=== PATIENT | male | born 2000 | race African-American/Black ===

== ENCOUNTER 2020-02-09 22:13 | Emergency (ER) | payer OTHER, SELFPAY ==
[2020-02-09] MEDS ORDERED: ONDANSETRON 4 MG/2 ML VIAL ONE (23:20)
[2020-02-09] MEDS ORDERED: KETOROLAC 30 MG/ML INJ ONE (23:20)
[2020-02-09] MEDS ORDERED: NA CHLORIDE 0.9% 1,000 ML ONE (23:20)
[2020-02-09 23:32] LABS: Absolute Lymphocytes (CBC) 1.1 K/uL (0.7-4.9); Hematocrit 39.7 % (39.6-49.0); Lymphocytes % 28.7 % (15.3-44.8); MPV 10.2 fL (7.6-11.3); RBC Red Blood Cell Count 4.43 M/uL (4.33-5.43)
[2020-02-09 23:43] LABS: ALT/SGPT 43 U/L (12-78); AST/SGOT 36 U/L (15-37); Albumin 4.5 g/dL (3.4-5.0); Alkaline Phosphatase 46 U/L (45-117); BUN Blood Urea Nitrogen 11 mg/dL (7-18); Bicarbonate 32 mmol/L (21-32); Bilirubin Total 0.9 mg/dL (0.2-1.0); Glucose Level 82 mg/dL (74-106); Potassium 3.8 mmol/L (3.5-5.1); Protein, Total 8.4 g/dL (6.4-8.2); Sodium Level 141 mmol/L (136-145)
--- NOTE | 2020-02-09 23:58 | EDPHYS ---
Physician Documentation [facility] Name: Dajuan Cabrera Age: 19 yrs Sex: Male : 2000 Arrival Date: 02/09/2020 Time: 22:16 Bed 24 Private MD: ED Physician Sin Dias HPI: 02/08 22:52 This 19 yrs old Black Male presents to ER via Ambulatory with complaints of Neck azalea Problem, Back Pain. 22:52 The patient or guardian complains of pain. The symptoms are located on the posterior azalea cervical area, left trapezius and right trapezius. Onset: The symptoms/episode began/occurred 2 day(s) ago. Historical: - Allergies: 22:28 No Known Allergies; sg - Home Meds: 22:28 None [Active]; sg - PMHx: 22:28 Hypertension; sg - PSHx: 22:28 None; sg - Immunization history:: Adult Immunizations up to date. - Social history:: Smoking status: Patient denies any tobacco usage or history of. ROS: 22:52 Constitutional: Negative for fever, chills, and weight loss, Eyes: Negative for injury, azalea pain, redness, and discharge, ENT: Negative for injury, pain, and discharge, Cardiovascular: Negative for chest pain, palpitations, and edema, Abdomen/GI: Negative for abdominal pain, nausea, vomiting, diarrhea, and constipation, Back: Negative for injury and pain, : Negative for injury, bleeding, discharge, and swelling, MS/Extremity: Negative for injury and deformity, Skin: Negative for injury, rash, and discoloration, Neuro: Negative for headache, weakness, numbness, tingling, and seizure, Psych: Negative for depression, anxiety, suicide ideation, homicidal ideation, and hallucinations, Allergy/Immunology: Negative for hives, rash, and allergies, Endocrine: Negative for neck swelling, polydipsia, polyuria, polyphagia, and marked weight changes, Hematologic/Lymphatic: Negative for swollen nodes, abnormal bleeding, and unusual bruising. 22:52 Neck: Positive for stiffness, of the right trapezius and left trapezius. 22:52 Respiratory: Positive for cough. 22:52 Back: Positive for decreased range of motion, pain at rest. Exam: 22:52 Constitutional: This is a well developed, well nourished patient who is awake, alert, azalea and in no acute distress. Head/Face: Normocephalic, atraumatic. Eyes: Pupils equal round and reactive to light, extra-ocular motions intact. Lids and lashes normal. Conjunctiva and sclera are non-icteric and not injected. Cornea within normal limits. Periorbital areas with no swelling, redness, or edema. ENT: Nares patent. No nasal discharge, no septal abnormalities noted. Tympanic membranes are normal and external auditory canals are clear. Oropharynx with no redness, swelling, or masses, exudates, or evidence of obstruction, uvula midline. Mucous membranes moist. Neck: Trachea midline, no thyromegaly or masses palpated, and no cervical lymphadenopathy. Supple, full range of motion without nuchal rigidity, or vertebral point tenderness. No Meningismus. Chest/axilla: Normal chest wall appearance and motion. Nontender with no deformity. No lesions are appreciated. Cardiovascular: Regular rate and rhythm with a normal S1 and S2. No gallops, murmurs, or rubs. Normal PMI, no JVD. No pulse deficits. Respiratory: Lungs have equal breath sounds bilaterally, clear to auscultation and percussion. No rales, rhonchi or wheezes noted. No increased work of breathing, no retractions or nasal flaring. Abdomen/GI: Soft, non-tender, with normal bowel sounds. No distension or tympany. No guarding or rebound. No evidence of tenderness throughout. Back: No spinal tenderness. No costovertebral tenderness. Full range of motion. Male : Normal genitalia with no discharge or lesions. Skin: Warm, dry with normal turgor. Normal color with no rashes, no lesions, and no evidence of cellulitis. MS/ Extremity: Pulses equal, no cyanosis. Neurovascular intact. Full, normal range of motion. Neuro: Awake and alert, GCS 15, oriented to person, place, time, and situation. Cranial nerves II-XII grossly intact. Motor strength 5/5 in all extremities. Sensory grossly intact. Cerebellar exam normal. Normal gait. Psych: Awake, alert, with orientation to person, place and time. Behavior, mood, and affect are within normal limits. 22:52 Neck: ROM/movement: is normal, no acute changes, limited range of motion, is not appreciated, Meningeal signs: are not present, Kernig's sign is negative, Brudzinski's sign is negative, nuchal rigidity, is not appreciated. 22:52 Abdomen/GI: Inspection: abdomen appears normal, Bowel sounds: normal, Palpation: abdomen is soft and non-tender, Liver: no appreciated palpable abnormalities, Hernia: not appreciated. 22:52 Back: ROM is painful, with flexion, with extension, normal spinal alignment noted, CVA tenderness, is absent, muscle spasm, is not present. Vital Signs: 22:28 BP 158 / 70; Pulse 89; Resp 16; Temp 97.7; Pulse Ox 99% on R/A; Weight 56.7 kg (R); sg 22:30 BP 147 / 100; Pulse 98; Resp 18; Pulse Ox 100% on R/A; vg1 23:00 BP 164 / 95; Pulse 93; Resp 16; Pulse Ox 100% on R/A; vg1 02/09 00:00 BP 148 / 98; Pulse 90; Resp 16; Pulse Ox 100% on R/A; vg1 MDM: 02/08 22:43 Patient medically screened. [facility] 22:52 Differential diagnosis: Cervical Raiculopathy arthritis, sprain, TB Meningitis Neck azalea Contusion. Data reviewed: vital signs, nurses notes, lab test result(s), radiologic studies, plain films. Data interpreted: quality assurance monitor final: rate is 98 beats/min, rhythm is regular, Pulse oximetry: on room air is 100 %. Test interpretation: by ED physician or midlevel provider: plain radiologic studies. Counseling: I had a detailed discussion with the patient and/or guardian regarding: the historical points, exam findings, and any diagnostic results supporting the discharge/admit diagnosis, the presence of at least one elevated blood pressure reading (>120/80) during this emergency department visit, lab results, radiology results. 02/08 22:51 Order name: CBC with Diff; Complete Time: 23:43 [facility] 02/08 22:51 Order name: Comprehensive Metabolic Panel; Complete Time: 23:58 [facility] 02/08 22:51 Order name: COVID-19 [facility] 02/08 22:51 Order name: Lumbar Spine (3 Views) XRAY [facility] 02/08 22:51 Order name: Flu [facility] 02/08 23:21 Order name: Urine Dipstick--Ancillary (enter results) mw2 02/08 22:51 Order name: Urine Dipstick-Ancillary (obtain specimen); Complete Time: 23:12 [facility] 02/08 22:51 Order name: Chest Single View XRAY [facility] Administered Medications: 23:40 Drug: NS 0.9% 1000 ml Route: IV; Rate: 1 bolus; Site: right antecubital; vg1 02/09 00:21 Follow up: IV Status: Completed infusion; IV Intake: 1000ml [facility] 02/08 23:40 Drug: TORadol 30 mg Route: IVP; Site: right antecubital; vg1 02/09 00:12 Follow up: Response: Pain is decreased 1 02/08 23:40 Drug: Zofran (Ondansetron) 4 mg Route: IVP; Site: right antecubital; vg1 02/09 00:12 Follow up: Response: No adverse reaction vg1 Disposition: 02/09/20 23:58 Discharged to Home. Impression: Low back pain, Malaise and fatigue, Cough, Contact with and (suspected) exposure to other viral communicable diseases. - Condition is Stable. - Discharge Instructions: Back Pain, Adult, Musculoskeletal Pain, Upper Respiratory Infection, Adult, Weakness, Back Pain, Adult, [id number]. - Prescriptions for Ibuprofen 600 mg Oral Tablet - take 1 tablet by ORAL route every 8 hours As needed take with food; 21 tablet. Zithromax Z- Stehpane 250 mg Oral Tablet - take 1 tablet by ORAL route as directed for 5 days Day 1 - take two (2) tablets one time. Day 2, 3, 4 , 5 take one (1) tablet once daily.; 6 tablet. - Medication Reconciliation Form, Thank You Letter, Antibiotic Education, Prescription Opioid Use form. - Follow up: Private Physician; When: 2 - 3 days; Reason: Recheck today's complaints, Continuance of care, Re-evaluation by your physician. - Problem is new. - Symptoms have improved. Signatures: Dispatcher [employer] Asim Weston, KAROL RN Sin Villeda MD MD cha Garcia, Victoria RN RN vg1 Corrections: (The following items were deleted from the chart) 00:20 02/08 23:58 02/09/2020 23:58 Discharged to Home. Impression: Low back pain; Malaise and vg1 fatigue; Cough; Contact with and (suspected) exposure to other viral communicable diseases. Condition is Stable. Discharge Instructions: Back Pain, Adult, Musculoskeletal Pain, Upper Respiratory Infection, Adult, Weakness, Back Pain, Adult, [id number]. Prescriptions for Ibuprofen 600 mg Oral Tablet - take 1 tablet by ORAL route every 8 hours As needed take with food; 21 tablet. and Forms are Medication Reconciliation Form, Thank You Letter, Antibiotic Education, Prescription Opioid Use. Follow up: Private Physician; When: 2 - 3 days; Reason: Recheck today's complaints, Continuance of care, Re-evaluation by your physician. Problem is new. Symptoms have improved. azalea
--- NOTE | 2020-02-09 23:58 | ER ---
Nurse's Notes [facility] Name: Dajuan Cabrera Age: 19 yrs Sex: Male : 2000 Arrival Date: 02/09/2020 Time: 22:16 Bed 24 Private MD: Diagnosis: Low back pain;Malaise and fatigue;Cough;Contact with and (suspected) exposure to other viral communicable diseases Presentation: 02/08 22:28 Chief complaint: Patient states: Neck pain, and lower back pain, denies injury or sg trauma at this time. I also have a cough, Im not sure if anything is related to that, a coworker of mine said that they tested positive for COVID so maybe I have that. Coronavirus screen: cough unrelated to allergies, Client presents with at least one sign or symptom that may indicate coronavirus-19. Standard/surgical mask placed on the client. Provider contacted for isolation considerations. The client denies any previous COVID testing. Ebola Screen: Patient negative for fever greater than or equal to 101.5 degrees Fahrenheit, and additional compatible Ebola Virus Disease symptoms Patient denies exposure to infectious person. Patient denies travel to an Ebola-affected area in the 21 days before illness onset. No symptoms or risks identified at this time. Initial Sepsis Screen: Does the patient meet any 2 criteria? No. Patient's initial sepsis screen is negative. Does the patient have a suspected source of infection? No. Patient's initial sepsis screen is negative. Risk Assessment: Do you want to hurt yourself or someone else? Patient reports no desire to harm self or others. Onset of symptoms was February 09, 2020. Care prior to arrival: None. Transition of care: patient was not received from another setting of care. 22:28 Method Of Arrival: Ambulatory sg 22:28 Acuity: BETO 4 sg Historical: - Allergies: 22:28 No Known Allergies; sg - Home Meds: 22:28 None [Active]; sg - PMHx: 22:28 Hypertension; sg - PSHx: 22:28 None; sg - Immunization history:: Adult Immunizations up to date. - Social history:: Smoking status: Patient denies any tobacco usage or history of. Screenin:30 Abuse screen: Denies threats or abuse. Nutritional screening: No deficits noted. vg1 Tuberculosis screening: No symptoms or risk factors identified. Fall Risk None identified. Assessment: 22:30 General: Appears in no apparent distress. comfortable, Behavior is calm, cooperative. vg1 22:30 Pain: Complains of pain in neck and lower back Pain radiates to neck pain radiates to vg1 shoulders Pain currently is 10 out of 10 on a pain scale. Quality of pain is described as sharp. Neuro: Level of Consciousness is awake, alert, obeys commands, Oriented to person, place, time, situation. Cardiovascular: Patient's skin is warm and dry. Respiratory: Airway is patent Respiratory effort is even, unlabored, Respiratory pattern is regular, symmetrical. GI: No signs and/or symptoms were reported involving the gastrointestinal system. : No signs and/or symptoms were reported regarding the genitourinary system. EENT: No signs and/or symptoms were reported regarding the EENT system. Derm: Skin is intact, is healthy with good turgor. Musculoskeletal: Range of motion: limited in lower back. 23:35 Reassessment: Patient appears in no apparent distress at this time. Patient and/or vg1 family updated on plan of care and expected duration. Pain level reassessed. Patient is alert, oriented x 3, equal unlabored respirations, skin warm/dry/pink. Vital Signs: 22:28 BP 158 / 70; Pulse 89; Resp 16; Temp 97.7; Pulse Ox 99% on R/A; Weight 56.7 kg (R); sg 22:30 BP 147 / 100; Pulse 98; Resp 18; Pulse Ox 100% on R/A; vg1 23:00 BP 164 / 95; Pulse 93; Resp 16; Pulse Ox 100% on R/A; vg1 1230 00:00 BP 148 / 98; Pulse 90; Resp 16; Pulse Ox 100% on R/A; vg1 ED Course: 02/08 22:16 Patient arrived in ED. cl3 22:23 Jennifer Blanchard, RN is Primary Nurse. vg1 22:29 Arm band placed on. sg 22:30 Patient has correct armband on for positive identification. Bed in low position. Call 1 light in reach. Pulse ox on. NIBP on. 22:31 Triage completed. sg 22:43 Sin Dias MD is Attending Physician. azalea 23:00 Initial lab(s) drawn, by me, sent to lab. Inserted saline lock: 20 gauge in right jp3 antecubital area, using aseptic technique. Blood collected. 23:00 Patient maintains SpO2 saturation greater than 95% on room air. jp3 23:05 COVID swab sent to lab. Flu and/or RSV swab sent to lab. jp3 23:10 Urine collected: clean catch specimen, clear, kristin colored. jp3 23:49 Primary Nurse role handed off by Jennifer Blanchard, RN sg 23:49 Asim Sweet, RN is Primary Nurse. sg 23:54 Lumbar Spine (3 Views) XRAY In Process Unspecified. EDMS 23:54 Chest Single View XRAY In Process Unspecified. EDMS 02/09 00:20 No provider procedures requiring assistance completed. IV discontinued, intact, vg1 bleeding controlled, No redness/swelling at site. Pressure dressing applied. Administered Medications: 02/08 23:40 Drug: NS 0.9% 1000 ml Route: IV; Rate: 1 bolus; Site: right antecubital; vg1 02/09 00:21 Follow up: IV Status: Completed infusion; IV Intake: 1000ml vg1 02/08 23:40 Drug: TORadol 30 mg Route: IVP; Site: right antecubital; vg1 02/09 00:12 Follow up: Response: Pain is decreased vg1 02/08 23:40 Drug: Zofran (Ondansetron) 4 mg Route: IVP; Site: right antecubital; vg1 02/09 00:12 Follow up: Response: No adverse reaction vg1 Intake: 00:21 IV: 1000ml; Total: 1000ml. vg1 Outcome: 02/08 23:58 Discharge ordered by MD. tristan 02/09 00:20 Discharged to home ambulatory. vg1 Condition: stable Discharge instructions given to patient, Instructed on discharge instructions, follow up and referral plans. medication usage, Demonstrated understanding of instructions, follow-up care, medications, Prescriptions given X 2. 00:20 Patient left the ED. vg1 Addendum: 02/11/2020 18:25 Addendum: COVID-19 Result: Negative result given to RN to notify pt. Attempted to i w contact pt regarding negative COVID-19 swab results. Unable to leave voice mail due to the number provided was either not a working number, the voice mail has not been set up, or the voice mailbox is full.. 19:11 Addendum: COVID-19 Result: Negative result given to RN to notify pt. Notified pt of i w negative COVID 19 swab results. Pt advised that even with a negative test result they should remain in isolation until symptom free for 3 days without medication. Pt also advised to return to the ED for worsening symptoms. Signatures: Dispatcher [employer] EDAsim Garcia, Sin Fowler RN, MD MD cha Williams, Irene RN Valentín Nevarez jp3 Cheikh Traylor3 Jennifer Blanchard RN RN vg1
[2020-02-10 00:27] LABS: Urine Blood NEGATIVE (NEG); Urine Glucose NEGATIVE (NEG); Urine Protein NEGATIVE (NEG); Urine Specific Gravity 1.025 (1.005-1.030); Urine pH 6.5 (5.0-7.0)
[2020-02-10 00:36] VITALS: TEMP 97.7
[2020-02-10 00:37] VITALS: O2SAT 100
[2020-02-10 00:39] VITALS: BP 148/98
--- NOTE | 2020-02-10 07:53 | RAD REPORT ---
EXAM DESCRIPTION: Neema Single View02/09/2020 11:54 pm CLINICAL HISTORY: Cough COMPARISON: none FINDINGS: The lungs appear clear of acute infiltrate. The heart is normal size IMPRESSION: No acute abnormalities displayed
--- NOTE | 2020-02-10 07:58 | RAD REPORT ---
EXAM DESCRIPTION: RAD - Lumbar Spine 3 Views - 02/09/2020 11:54 pm CLINICAL HISTORY: Back pain FINDINGS: Minimal posterior subluxation L5 on S1. No fracture Remainder of the exam unremarkable
== END 2020-02-10 00:20 | disposition home or self-care (01) ==
LOC: ER 22:13
DX: R05 Cough (principal); R53.81 Other malaise; R53.83 Other fatigue; Z20.828 Contact with and (suspected) exposure to other viral communicable diseases; I10 Essential (primary) hypertension
CPT/HCPCS: 36415; 71045; 72100; 80053; 81003; 85025; 87804; 96361; 96374; 96375; 99284; J2405; J7030; U0002

== ENCOUNTER 2023-07-27 12:26 | Emergency (ER) | payer SELFPAY ==
[2023-07-27] MEDS ORDERED: LORazepam 2 MG/ML VIAL ONE (12:47)
[2023-07-27] MEDS ORDERED: ASPIRIN 81 MG CHEWABLE TABLET ONE (12:47)
[2023-07-27] MEDS ORDERED: NA CHLORIDE 0.9% 1,000 ML ONE (12:48)
[2023-07-27 13:05] LABS: Absolute Eosinophils 0.1 K/uL (0-0.5); Absolute Monocytes 0.5 K/uL (0.1-1.3); Absolute Neutrophil 3.1 K/uL (1.8-8.0); Basophils % 0.5 % (0-1.3); Eosinophils % 1.5 % (0-4.4); Hematocrit 41.5 % (39.6-49.0); Hemoglobin 13.9 g/dL (13.6-17.9); Lymphocytes % 22.1 % (15.3-44.8); MCH 30.6 pg (27.0-35.0); MCHC 33.4 g/dL (32.0-36.0); MCV 91.6 fL (80-100); MPV 9.8 fL (7.6-11.3); Monocytes % 10.5 % (3.3-12.3); Neutrophils % 65.4 % (41.7-73.7); Platelets 163 thou/uL (152-406); RBC Red Blood Cell Count 4.54 M/uL (4.33-5.43); Red Cell Distribution Width 12.3 % (12.1-15.2)
[2023-07-27 13:21] LABS: Anion Gap 6.8 mEq/L (5.0-15.0); Potassium 3.8 mEq/L (3.5-5.1); Troponin High Sensitivity 6.9 pg/mL (<58.9)
--- NOTE | 2023-07-27 14:04 | RAD REPORT ---
EXAM DESCRIPTION: Neema Single View07/27/2023 1:07 pm CLINICAL HISTORY: Chest pain COMPARISON: 2019 FINDINGS: The lungs appear clear of acute infiltrate. The heart is normal size IMPRESSION: No acute abnormalities displayed
--- NOTE | 2023-07-27 14:09 | EDPHYS ---
Physician Documentation [facility] Name: Dajuan Cabrera Age: 23 yrs Sex: Male : 2000 Arrival Date: 07/27/2023 Time: 12:26 Bed 6 Private MD: ED Physician Luis Barboza HPI: 07/26 12:45 This 23 yrs old Black Male presents to ER via Ambulatory with complaints of Chest [facility] Tightness. 12:45 23-year-old male with a past medical history of pericarditis once in high school 7 presents to the ER for left-sided chest pain. The patient reports that he smoked marijuana last night and developed chest pain, shortness of breath, nausea, vomiting, and diarrhea. The patient is anxious in triage and states that there is something seriously wrong with his heart and that he is going to .. Historical: - Allergies: 12:46 Vyvanse; ph - PMHx: 12:46 pericarditis; Hypertension; ph - Immunization history:: Adult Immunizations up to date. - Infectious Disease History:: Denies. - Social history:: Smoking status: Patient denies any tobacco usage or history of. Patient uses street drugs, marijuana. ROS: 12:45 Constitutional: Per HPI 7 Exam: 12:45 Head/Face: Normocephalic, atraumatic. Neck: Trachea midline, no thyromegaly or masses 7 palpated, and no cervical lymphadenopathy. Supple, full range of motion without nuchal rigidity, or vertebral point tenderness. No Meningismus. Cardiovascular: Regular rate and rhythm with a normal S1 and S2. No gallops, murmurs, or rubs. Normal PMI, no JVD. No pulse deficits. Respiratory: Lungs have equal breath sounds bilaterally, clear to auscultation and percussion. No rales, rhonchi or wheezes noted. No increased work of breathing, no retractions or nasal flaring. Abdomen/GI: Soft, non-tender, with normal bowel sounds. No distension or tympany. No guarding or rebound. No evidence of tenderness throughout. Back: No spinal tenderness. No costovertebral tenderness. Full range of motion. Skin: Warm, dry with normal turgor. Normal color with no rashes, no lesions, and no evidence of cellulitis. MS/ Extremity: Pulses equal, no cyanosis. Neurovascular intact. Full, normal range of motion. Neuro: Awake and alert, GCS 15, oriented to person, place, time, and situation. Normal gait. 12:45 Constitutional: The patient appears alert, awake, anxious, Vital Signs: 12:45 BP 132 / 85; Pulse 80; Resp 18; Temp 97.5; Pulse Ox 99% on R/A; Weight 63.5 kg; Height ph 5 ft. 7 in. ; 12:59 BP 132 / 85; Pulse 71; Resp 16; Pulse Ox 100% ; as6 13:55 BP 116 / 67; Pulse 60; Resp 18; Pulse Ox 98% ; as6 12:45 Body Mass Index 21.93 (63.50 kg, 170.18 cm) ph MDM: 12:34 Patient medically screened. [facility] 14:07 Differential diagnosis: AMI, pneumonia, stable angina, anxiety, pericarditis. Data [facility] reviewed: vital signs, nurses notes, lab test result(s), EKG, radiologic studies, plain films. I considered the following discharge prescriptions or medication management in the emergency department Medications were administered in the Emergency Department. See MAR. Independent interpretation of the following test(s) in the Emergency Department EKG: See my EKG interpretation above. Counseling: I had a detailed discussion with the patient and/or guardian regarding the historical points, exam findings, and any diagnostic results supporting the discharge/admit diagnosis, to return to the emergency department if symptoms worsen or persist or if there are any questions or concerns that arise at home. Response to treatment: the patient's symptoms have resolved after treatment, the patient's pain is gone, Patient sleeping peacefully. 07/26 12:44 Order name: Basic Metabolic Panel; Complete Time: 13:34 [facility] 07/26 12:44 Order name: CBC with Diff; Complete Time: 13:34 [facility] 07/26 12:44 Order name: Troponin HS; Complete Time: 13:34 [facility] 07/26 12:44 Order name: XRAY Chest (1 view); Complete Time: 14:06 [facility] 07/26 12:44 Order name: EKG; Complete Time: 12:45 [facility] 07/26 12:44 Order name: Cardiac monitoring; Complete Time: 12:45 [facility] 07/26 12:44 Order name: EKG - Nurse/Tech; Complete Time: 12:56 [facility] 07/26 12:44 Order name: IV Saline Lock; Complete Time: 12:56 [facility] 07/26 12:44 Order name: Labs collected and sent; Complete Time: 12:56 [facility] 07/26 12:44 Order name: O2 Per Protocol; Complete Time: 12:45 [facility] 07/26 12:44 Order name: O2 Sat Monitoring; Complete Time: 12:45 EC:57 Rate is 78 beats/min. Rhythm is irregular. QRS [place] is Normal. ME interval is normal at 7 148 msec. QRS interval is normal at 94 msec. QT interval is normal. No Q waves. T waves are Normal. No ST changes noted. Clinical impression: Sinus arrythmia. Administered Medications: 12:57 Drug: NS 0.9% IV 1000 ml IV at 1 bolus Per protocol; 1000 mL bolus Route: IV; Rate: 1 as6 bolus; Site: right forearm; 14:13 Follow up: Response: No adverse reaction; IV Status: Completed infusion; IV Intake: as6 1000ml 12:57 Drug: Ativan IVP 1 mg IVP once Route: IVP; Site: right forearm; as6 13:12 Follow up: Response: No adverse reaction; Anxiety decreased ko1 12:59 Drug: Aspirin PO Chewable Tablet 324 mg PO once; 81 mg tablets x 4 Route: PO; as6 13:30 Follow up: Response: No adverse reaction ko1 Disposition Summary: 07/27/23 14:08 Discharge Ordered Notes: Location: Home [facility] Problem: new [facility] Symptoms: are resolved [facility] Condition: Stable [facility] Diagnosis - Chest pain, unspecified [facility] - Generalized anxiety disorder [facility] Followup: [facility] - With: Private Physician - When: 2 - 3 days - Reason: Recheck today's complaints Discharge Instructions: - Discharge Summary Sheet 7 - Panic Attack jh7 - Nonspecific Chest Pain, Adult [facility] - Chest Wall Pain [facility] Forms: - Medication Reconciliation Form [facility] - Patient Portal Instructions [facility] - Leadership Thank You Letter [facility] Addendum: 07/30/2023 14:11 I was immediately available for consultation during this patient's visit. I did not e c2 personally see the patient or discuss the patient with the TATYANA. . Signatures: Dispatcher [employer] Teresa Osorio RN RN ph Anam Galaviz, RN RN as6 Radha Mckeon, CASE BRIEFER CASE BRIEFER jh7 Luis Barboza MD MD ec2 Nat Haque RN ko1
--- NOTE | 2023-07-27 14:09 | ER ---
Nurse's Notes [facility] Name: Dajuan Cabrera Age: 23 yrs Sex: Male : 2000 Arrival Date: 07/27/2023 Time: 12:26 Bed 6 Private MD: Diagnosis: Chest pain, unspecified;Generalized anxiety disorder Presentation: 07/26 12:45 Chief complaint: Patient states: L sided chest pain that started last night, SOB and ph N/V, admits to smoking marijuana last night before pain started. Coronavirus screen: Vaccine status: Patient reports being unvaccinated. Ebola Screen: No symptoms or risks identified at this time. Initial Sepsis Screen: Does the patient meet any 2 criteria? No. Patient's initial sepsis screen is negative. Does the patient have a suspected source of infection? No. Patient's initial sepsis screen is negative. Risk Assessment: Do you want to hurt yourself or someone else? Patient reports no desire to harm self or others. Onset of symptoms was July 27, 2023. 12:45 Method Of Arrival: Ambulatory ph 12:45 Acuity: BETO 2 ph Historical: - Allergies: 12:46 Vyvanse; ph - PMHx: 12:46 pericarditis; Hypertension; ph - Immunization history:: Adult Immunizations up to date. - Infectious Disease History:: Denies. - Social history:: Smoking status: Patient denies any tobacco usage or history of. Patient uses street drugs, marijuana. Screenin:58 [facility] ED Fall Risk Assessment (Adult) History of falling in the last 3 months, as6 including since admission No falls in past 3 months (0 pts) Confusion or Disorientation No (0 pts) Intoxicated or Sedated No (0 pts) Impaired Gait No (0 pts) Mobility Assist Device Used No (0 pt) Altered Elimination No (0 pt) Score/Fall Risk Level 0 - 2 = Low Risk Oriented to surroundings, Maintained a safe environment, Educated pt \T\ family on fall prevention, incl call for assistance when getting out of bed, Assessed \T\ reinforced patient's understanding of fall precautions. Abuse screen: Denies threats or abuse. Denies injuries from another. Nutritional screening: No deficits noted. Tuberculosis screening: No symptoms or risk factors identified. Assessment: 12:57 General: Appears in no apparent distress. well groomed, Behavior is cooperative, as6 anxious, crying. Pain: Complains of pain in chest Quality of pain is described as crushing, squeezing. Neuro: Level of Consciousness is awake, alert, obeys commands, Oriented to person, place, time, situation. Cardiovascular: Reports chest pain, shortness of breath. Respiratory: Reports shortness of breath Breath sounds are clear bilaterally. 13:55 Reassessment: Patient appears in no apparent distress at this time. Patient and/or as6 family updated on plan of care and expected duration. Pain level reassessed. Patient is alert, oriented x 3, equal unlabored respirations, skin warm/dry/pink. Vital Signs: 12:45 BP 132 / 85; Pulse 80; Resp 18; Temp 97.5; Pulse Ox 99% on R/A; Weight 63.5 kg; Height ph 5 ft. 7 in. ; 12:59 BP 132 / 85; Pulse 71; Resp 16; Pulse Ox 100% ; as6 13:55 BP 116 / 67; Pulse 60; Resp 18; Pulse Ox 98% ; as6 12:45 Body Mass Index 21.93 (63.50 kg, 170.18 cm) ph ED Course: 12:27 Patient arrived in ED. mr 12:33 Radha Mckeon, [facility] 12:33 Luis Barboza MD is Attending Physician. 7 12:44 Anam Galaviz, KAROL is Primary Nurse. as6 12:46 Triage completed. ph 12:47 Arm band placed on Patient placed in an exam room, on a stretcher, on bus driver/monitor, ph on pulse oximetry. 12:57 Troponin HS Sent. as6 12:57 CBC with Diff Sent. as6 12:57 Basic Metabolic Panel Sent. as6 12:57 Inserted saline lock: 22 gauge in right forearm, using aseptic technique. Blood as6 collected. 12:58 Bed in low position. Call light in reach. Side rails up X 1. Client placed on as6 continuous cardiac and pulse oximetry monitoring. NIBP monitoring applied. engine monitor on. Warm blanket given. 13:09 XRAY Chest (1 view) In Process Unspecified. EDMS 14:15 Provided Education on: follow up. as6 14:15 No provider procedures requiring assistance completed. as6 14:20 IV discontinued, intact, bleeding controlled, No redness/swelling at site. Pressure as6 dressing applied. Administered Medications: 12:57 Drug: NS 0.9% IV 1000 ml IV at 1 bolus Per protocol; 1000 mL bolus Route: IV; Rate: 1 as6 bolus; Site: right forearm; 14:13 Follow up: Response: No adverse reaction; IV Status: Completed infusion; IV Intake: as6 1000ml 12:57 Drug: Ativan IVP 1 mg IVP once Route: IVP; Site: right forearm; as6 13:12 Follow up: Response: No adverse reaction; Anxiety decreased ko1 12:59 Drug: Aspirin PO Chewable Tablet 324 mg PO once; 81 mg tablets x 4 Route: PO; as6 13:30 Follow up: Response: No adverse reaction ko1 Medication: 12:58 VIS not applicable for this client. as6 Intake: 14:13 IV: 1000ml; Total: 1000ml. as6 Outcome: 14:08 Discharge ordered by MD. lopes 14:15 Condition: stable as6 14:20 Discharged to home ambulatory, as6 14:20 Discharge instructions given to patient, Instructed on discharge instructions, follow up and referral plans. Demonstrated understanding of instructions, follow-up care, 14:20 Patient left the ED. as6 14:57 Patient left the ED. as6 Signatures: Dispatcher [employer] EDManda Londono, Ankit Pham mr Teresa Sandy, RN RN Anam Lubin RN RN as6 Radha Mckeon, ENVIRONMENT ARTIST ENVIRONMENT ARTIST 7 Nat Haque RN RN ko1
[2023-07-27 14:29] VITALS: TEMP 97.5
[2023-07-27 15:27] VITALS: BP 116/67; O2SAT 98
--- NOTE | 2023-07-29 14:57 | EKG ---
Test Date: 2023-07-27 Test Time: 12:57:21 Music Department Chair: FÉLIX MEASUREMENT RESULTS: Intervals: Rate: 78 DC: 148 QRSD: 94 QT: 362 QTc: 412 [place]: P: 66 DC: 148 QRS: 81 T: 35 INTERPRETIVE STATEMENTS: Normal sinus rhythm with sinus arrhythmia Normal ECG No previous ECG available for comparison Electronically Signed On 07-29-23 14:52:08 CDT by Jono Rodas
== END 2023-07-27 14:57 | disposition home or self-care (01) ==
LOC: ER 12:26
DX: F41.1 Generalized anxiety disorder (principal)
CPT/HCPCS: 36415; 71045; 80048; 84484; 85025; 93005; 96361; 96374; 99285; J7030